=== PATIENT | male | born 1950 | race Caucasian/White ===

== ENCOUNTER 2017-09-06 10:20 | Emergency (ER) | payer MEDICARE ==
[2017-09-06 10:38] VITALS: BP 145/55
--- NOTE | 2017-09-06 11:08 | EDM.PDOC ---
ED HPI GENERAL MEDICAL PROBLEM - General Chief Complaint: Skin Complaint Stated Complaint: RT HAND SWOLLEN Time Seen by Provider: 09/06/17 10:55 Source of Information: Reports: Patient, RN History Limitations: Reports: No Limitations - History of Present Illness INITIAL COMMENTS - FREE TEXT/NARRATIVE: 66 yo male had onset of R hand pain and swelling yesterday. Denies injury. Hand does not feel hot to him. Getting worse over time. No hx of gout. Thinks it started in the proximal R 4th finger dorsally and moved proximally to his hand. 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 (see below) (none) Right Hand Pain Score (Numeric/FACES): 7 - Related Data Allergies Allergy/AdvReac Type Severity Reaction Status Date / Time No Known Allergies Allergy Verified 09/22/15 14:59 Home Meds: Home Meds Lisinopril 09/22/15 [History] Metoprolol Succinate 09/22/15 [History] metFORMIN [Glucophage XR] 1,000 mg PO BID 09/22/15 [History] Past Medical History HEENT History: Reports: Impaired Vision Cardiovascular History: Reports: High Cholesterol, Hypertension Endocrine/Metabolic History: Reports: Diabetes, Type II - Infectious Disease History Infectious Disease History: Reports: Chicken Pox, Measles, Mumps - Past Surgical History Cardiovascular Surgical History: Reports: Coronary Artery Stent Social & Family History - Tobacco Use Smoking Status *Q: Current Every Day Smoker Years of Tobacco use: 60 Packs/Tins Daily: 1 - Caffeine Use Caffeine Use: Reports: Coffee - Recreational Drug Use Recreational Drug Use: No ED ROS GENERAL - Review of Systems Review Of Systems: See Below Constitutional: Reports: No Symptoms HEENT: Reports: No Symptoms Respiratory: Reports: No Symptoms Cardiovascular: Reports: No Symptoms GI/Abdominal: Reports: No Symptoms Musculoskeletal: Reports: Hand Pain (right, dorsally) Skin: Reports: Erythema (R hand dorsally). Denies: Diaphoresis, Pruritis, Wound Neurological: Reports: No Symptoms ED EXAM, SKIN/RASH Exam: See Below Exam Limited By: No Limitations General Appearance: Alert, WD/WN, No Apparent Distress, Obese, Other (appears older than his stated age.) Eye Exam: Bilateral Eye: PERRL Ears: Normal External Exam, Normal Canal Nose: Normal Inspection, Normal Mucosa, No Blood Throat/Mouth: Normal Inspection, Normal Lips, Normal Oropharynx, Normal Voice, No Airway Compromise Head: Atraumatic, Normocephalic Neck: Normal Inspection Respiratory/Chest: No Respiratory Distress, No Accessory Muscle Use Extremities: Pedal Edema (R hand noticeably more swollen than the L(includes the fingers), some dorsal erythema, no increased warmth. Tender between the metacarpal bones of the 3rd and 4th fingers.), Limited Range of Motion (ROM slightly decreased due to pain and swelling.). No: No Pedal Edema Neurological: Alert, Oriented, CN II-XII Intact, Normal Cognition, No Motor/ Sensory Deficits Psychiatric: Normal Affect, Normal Mood Skin: Warm, Dry, Intact, Erythema (slight erythema to the dorsum of the R hand.) Location, Skin: Upper Extremity, Right Characteristics: Confluent, Erythematous Associated features: Tenderness, Swelling. No: Warmth Course - Vital Signs Text/Narrative:: Rocephin 1 gm IM, Bactrim DS po Last Recorded V/S: Last Vital Signs Temp 35.2 C 09/06/17 10:50 Pulse 75 09/06/17 10:50 Resp 18 09/06/17 10:50 BP 145/55 H 09/06/17 10:50 Pulse Ox 97 09/06/17 10:50 - Orders/Labs/Meds Orders: Active Orders 24 hr Category Date Time Status Hand Comp Min 3V Rt [CR] Stat Exams 09/06/17 11:01 Taken Sulfamethoxazole/Trimethoprim [Septra DS] Med 09/06/17 12:07 Once 1 tab PO ONETIME ONE cefTRIAXone [Rocephin] Med 09/06/17 12:06 Once 1 gm IM ONETIME ONE Labs: Laboratory Tests 09/06/17 09/06/17 Range/Units 11:24 11:24 ESR 27 H (0-20) mm/hr C-Reactive Protein 0.28 (0.0-0.3) mg/dL - Radiology Interpretation Free Text/Narrative:: R hand [id number] noted adjacent to the distal 4th metacarpal. Departure - Departure Time of Disposition: 12:25 Disposition: Home, Self-Care 01 Condition: Fair Clinical Impression: Swelling of right hand - Discharge Information Referrals: PCP,None [Primary Care Provider] - Forms: ED Department Discharge - My Orders Last 24 Hours: My Active Orders 09/06/17 11:01 Hand Comp Min 3V Rt [CR] Stat 09/06/17 12:06 cefTRIAXone [Rocephin] 1 gm IM ONETIME ONE 09/06/17 12:07 Sulfamethoxazole/Trimethoprim [Septra DS] 1 tab PO ONETIME ONE - Assessment/Plan Last 24 Hours: My Active Orders 09/06/17 11:01 Hand Comp Min 3V Rt [CR] Stat 09/06/17 12:06 cefTRIAXone [Rocephin] 1 gm IM ONETIME ONE 09/06/17 12:07 Sulfamethoxazole/Trimethoprim [Septra DS] 1 tab PO ONETIME ONE
[2017-09-06] MEDS ORDERED: cefTRIAXone 1 GM Vial IM ONE (12:06)
[2017-09-06] MEDS ORDERED: Sulfamethoxazole/Trimethoprim 800-160 MG Tab PO ONE (12:07)
--- NOTE | 2017-09-07 10:56 | CR ---
No acute fracture. Scattered amorphous calcifications about the joints. Degenerative changes DIP join ts.
== END 2017-09-06 12:30 | disposition home or self-care (01) ==
LOC: JP.ED 10:20
DX: M79.89 Other specified soft tissue disorders (principal); I10 Essential (primary) hypertension; E11.9 Type 2 diabetes mellitus without complications; F17.210 Nicotine dependence, cigarettes, uncomplicated; Z79.84 Long term (current) use of oral hypoglycemic drugs
CPT/HCPCS: 36415; 73130; 85651; 86140; 96372; 99284; A9270; J0696; 99283

== ENCOUNTER 2017-12-01 06:35 | Day surgery (SDC) | payer MEDICARE, OTHER ==
[2017-12-01] MEDS ORDERED: Dextrose 5%-Lactated Ringers 1,000 ML IV SCH (07:00)
[2017-12-01] MEDS ORDERED: Propofol 200 MG/20 ML SDV ONE (07:02)
[2017-12-01] MEDS ORDERED: Midazolam 1 MG/ML 2 ML SDV ONE (07:04)
[2017-12-01] MEDS ORDERED: fentaNYL 100 MCG/2 ML SDV ONE (07:04)
[2017-12-01] MEDS ORDERED: Glycopyrrolate 0.2 MG/ML 2 ML SDV IVPUSH ONE (07:45)
[2017-12-01 09:43] VITALS: BP 151/73
--- NOTE | 2017-12-10 07:47 | OR ---
DATE OF PROCEDURE: 12/01/2017 PREOPERATIVE DIAGNOSIS: Iron deficiency anemia. POSTOPERATIVE DIAGNOSES: Iron deficiency anemia associated with minimal antral gastritis (no upper gastrointestinal bleeding source identified on upper endoscopy). OPERATIVE PROCEDURE: Upper GI endoscopy with biopsies of antrum for CLOtest. ANESTHESIA: IV sedation. INDICATIONS FOR PROCEDURE: This is a 67-year-old presenting for upper endoscopy for evaluation of iron-deficiency anemia. The patient presently on low-dose aspirin 81 mg a day, along with omeprazole 20 mg a day. He has not had black or bloody stools and is undergoing upper endoscopy with biopsies as indicated for evaluation of potential upper GI bleeding sources. Potential risks, including bleeding and perforation, were discussed, and the patient wishes to proceed. DETAILS OF THE PROCEDURE: The patient was taken to the operating room and placed in a left lateral decubitus position. IV sedation was administered, after which the upper GI endoscope was passed orally through the length of the esophagus and into the stomach with retroflexion view of the fundus, and thereafter, through the pyloric channel and into the junction of the third and fourth portions of the duodenum. The hypopharynx, larynx, and upper esophageal sphincter were unremarkable, as was the esophageal body. At the EG junction, no significant hiatal hernia or inflammation was present. There was no stricturing or gross evidence of neoplasia. No upward extension of the gastroesophageal junction mucosal line. Within the stomach, there was no retained food or fluid, and there was some very mild redness in the antral area but without erosions or ulcers. The pyloric channel and the visualized portions of the duodenum were unremarkable. At this point, biopsies were obtained from the antrum and sent for CLOtest to establish the patient's H. pylori status. Minimal bleeding from the biopsy site was seen and the procedure then concluded. Overall, there appeared to be no GI bleeding sites identified on the upper endoscopy and with the outpatient colonoscopy being negative, the next step, as per the [place] physicians, would likely be a capsule endoscopy to evaluate the small bowel. Elliot Rowley MD /[id number]
== END 2017-12-01 09:48 | disposition home or self-care (01) ==
LOC: JP.SDS 06:35
PROVIDERS: ATTEND Surgery
DX: K29.70 Gastritis, unspecified, without bleeding (principal); D50.9 Iron deficiency anemia, unspecified; I25.10 Atherosclerotic heart disease of native coronary artery without angina pectoris; I10 Essential (primary) hypertension; K21.9 Gastro-esophageal reflux disease without esophagitis; E11.9 Type 2 diabetes mellitus without complications; Z79.84 Long term (current) use of oral hypoglycemic drugs; Z79.82 Long term (current) use of aspirin; Z79.899 Other long term (current) drug therapy
CPT/HCPCS: 43239; 87081; J2250; J2704; J3010; J7042; J3490